=== PATIENT | female | born 1970 | race American Indian/Alaskan Native ===

== ENCOUNTER 2020-08-15 12:18 | Emergency (ER) | payer SELFPAY ==
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
[2020-08-15 15:56] VITALS: BP 156/90
[2020-08-15] MEDS ORDERED: CYCLOBENZAPRINE 10 MG TAB PO ONE (17:11)
[2020-08-15] MEDS ORDERED: ACETAMINOPHEN 325 MG TAB PO ONE (17:11)
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
== END 2020-08-15 17:37 | disposition home or self-care (01) ==
LOC: ED 12:18
DX: S29.019A Strain of muscle and tendon of unspecified wall of thorax, initial encounter (principal); S39.012A Strain of muscle, fascia and tendon of lower back, initial encounter; Z79.899 Other long term (current) drug therapy; Z88.0 Allergy status to penicillin; Z88.8 Allergy status to other drugs, medicaments and biological substances; V49.49XA Driver injured in collision with other motor vehicles in traffic accident, initial encounter; Y92.410 Unspecified street and highway as the place of occurrence of the external cause; Y93.89 Activity, other specified; Y99.8 Other external cause status
CPT/HCPCS: 72070; 72100